=== PATIENT | female | born 1985 | race American Indian/Alaskan Native ===

== ENCOUNTER 2017-09-13 13:14 | Emergency (ER) | payer MEDICAID ==
[2017-09-13 14:08] LABS: Mean Corpuscular HGB Conc 30 % (30-34); Mean Corpuscular Volume 74 fl (79-97); Platelet Count 367 K/mm3 (140-440); Red Blood Count 4.56 M/mm3 (3.65-5.03); Red Cell Distribution Width 18.7 % (13.2-15.2)
[2017-09-13 14:09] LABS: Hemoglobin 10.2 gm/dl (10.1-14.3); Mean Corpuscular Hemoglobin 22 pg (28-32)
[2017-09-13 14:21] LABS: BUN/Creatinine Ratio 11; Blood Urea Nitrogen 9 mg/dL (7-17); Calcium 8.6 mg/dL (8.4-10.2); Carbon Dioxide 19 mmol/L (22-30); Glucose 95 mg/dL (65-100)
[2017-09-13 14:22] LABS: Anion Gap 19 mmol/L; Chloride 103.3 mmol/L (98-107); Potassium 4.6 mmol/L (3.6-5.0); Sodium 137 mmol/L (137-145)
[2017-09-13 15:26] LABS: Bilirubin,Urine NEG (Negative); Blood,Urine NEG (Negative); Ketones,Urine NEG (Negative); Leukocyte Esterase,Urine NEG (Negative); Mucus,Urine 1+ /HPF; Nitrite,Urine NEG (Negative); Protein,Urine <15 mg/dL mg/dL (Negative); RBC,Urine < 1.0 /HPF (0.0-6.0); Urobilinogen,Urine < 2.0 mg/dL (<2.0)
--- NOTE | 2017-09-13 16:20 | XRay Report ---
CHEST TWO VIEWS: 09/13/17 15:54 CLINICAL: Chest pain and shortness of breath. COMPARISON: None FINDINGS: Mild cardiomegaly. Normal pulmonary vessels. The lungs are normally expanded and clear.The bones and soft tissues are unremarkable. IMPRESSION: Mild cardiomegaly but no CHF.
[2017-09-13 17:01] VITALS: BP 116/91
== END 2017-09-13 19:24 | disposition left against medical advice (07) ==
LOC: ED 13:14
DX: R07.9 Chest pain, unspecified (principal); R42 Dizziness and giddiness; Z53.21 Procedure and treatment not carried out due to patient leaving prior to being seen by health care provider
CPT/HCPCS: 36415; 71020; 80048; 81001; 81025; 84484; 85025; 93005; 93010